=== PATIENT | female | born 1965 | race African-American/Black ===

== ENCOUNTER → 2016-12-13 | Outpatient (CLI) | payer MEDICAID | LOC: BRMIMAGING 14:20 | DX: Z12.31 Encounter for screening mammogram for malignant neoplasm of breast (principal) | CPT/HCPCS: G0202 ==

== ENCOUNTER → 2017-01-09 | Outpatient (CLI) | payer MEDICAID | LOC: BRMIMAGING 10:24 | PROVIDERS: ATTEND Registered Nurse | DX: Z03.89 Encounter for observation for other suspected diseases and conditions ruled out (principal) | CPT/HCPCS: G0206 ==